=== PATIENT | male | born 1990 | race Caucasian/White ===

== ENCOUNTER 2021-02-15 10:04 | Inpatient (IN) | payer BC, SELFPAY ==
[~2021-02-15] VITALS: Ht 177.8 cm; Wt 90.9 kg
[~2021-02-15 10:04] MED LIST: PANTOPRAZOLE 40MG VIAL (C9113 PER 1) IV SCH
--- OUTSIDE RECORDS SUMMARY | 2021-02-15 10:16 | CCD ---
Author Author [facility] Organization [facility] Address Unknown Phone Unavailable Support Name Relationship Address Phone [facility] Next Of Kin [address] [place] [address] ELI FAY Next Of Kin [address] [facility] [address] [place] [phone] [place] [address] Unavailable Re-disclosure Warning The records that you are about to access may contain information from federally-assisted alcohol or drug abuse programs. If such information is present, then the following federally mandated warning applies: This information has been disclosed to you from records protected by federal confidentiality rules (42 CFR part 2). The federal rules prohibit you from making any further disclosure of this information unless further disclosure is expressly permitted by the written consent of the person to whom it pertains or as otherwise permitted by 42 CFR part 2. A general authorization for the release of medical or other information is NOT sufficient for this purpose. The Federal rules restrict any use of the information to criminally investigate or prosecute any alcohol or drug abuse patient.The records that you are about to access may contain highly sensitive health information, the redisclosure of which is protected by Article 27-F of the [facility] Public Health law. If you continue you may have access to information: Regarding HIV / AIDS; Provided by facilities licensed or operated by the [facility] Office of Mental Health; or Provided by the [facility] Office for People With Developmental Disabilities. If such information is present, then the following [facility] mandated warning applies: This information has been disclosed to you from confidential records which are protected by state law. State law prohibits you from making any further disclosure of this information without the specific written consent of the person to whom it pertains, or as otherwise permitted by law. Any unauthorized further disclosure in violation of state law may result in a fine or fci sentence or both. A general authorization for the release of medical or other information is NOT sufficient authorization for further disc losure. Immunizations Vaccine Date Status Description Data Source(s) COVID-19 VACCINE Moderna 08/30/2020 12:00:00 AM EDT completed [facility] Vaccine Series Complete: YESThis Data wa s Submitted to [facility] Via [employer]. COVID-19 VACCINE Moderna 08/02/2020 12:00:00 AM EDT completed [facility] Vaccine Series Complete: NOThis Data was Submitted to [facility] Via [employer]. Medications No Information Insurance Providers Payer name Policy type / Coverage type Policy ID Covered alliance party ID Covered alliance party's relationship to minaya Policy Minaya Plan Information [employer]/307 [id number] SP [id number] [place] [place]/307 [id number] SP [id number] ANSI-Not a Secondary Insurance [id number] ANSI-Not a Secondary Insurance [id number] Problems, Conditions, and Diagnoses No Information Surgeries/Procedures No Information Results No Information Social History No Information
[2021-02-15] MEDS ORDERED: NS 2,730 ML in IV 1 EA IV ONE ×4 (10:25)
[2021-02-15] MEDS ORDERED: cefTRIAXone SOD 2 GM in D5W MINI-BAG PLUS 50 ML IV ONE (10:25)
[2021-02-15] MEDS ORDERED: ONDANSETRON 4MG/2ML VIAL IV ONE (10:40)
[2021-02-15 10:49] LABS: BASO # 0.1 10^3/uL (0.0-0.2); BASO % 0.4 % (0.0-1.0); HEMATOCRIT 64.3 % (42.0-52.0); LYMPH # 1.6 10^3/uL (1.5-5.0); LYMPH % 4.5 % (24.0-44.0); MEAN CORPUSCULAR HEMOGLOBIN 29.7 pg (27.0-33.0); MEAN CORPUSCULAR HGB CONC 36.1 g/dl (32.0-36.5); MEAN CORPUSCULAR VOLUME 82.2 fl (80.0-96.0); MONO # 1.5 10^3/uL (0.0-0.8); MONO % 4.2 % (2.0-8.0); NEUTROPHILS # 30.5 10^3/uL (1.5-8.5); NEUTROPHILS % 88.5 % (36.0-66.0); PLATELET COUNT, AUTOMATED 320 10^3/uL (150-450); RED BLOOD COUNT 7.82 10^6/uL (4.30-6.10)
[2021-02-15 10:52] LABS: WHITE BLOOD COUNT 34.5 10^3/uL (4.0-10.0)
[2021-02-15 10:53] LABS: HEMOGLOBIN 23.2 g/dl (13.5-17.5)
[2021-02-15 11:00] LABS: INR 0.97; PARTIAL THROMBOPLASTIN TIME 29.5 SECONDS (25.9-37.0); PROTHROMBIN TIME 13.3 SECONDS (12.7-14.5)
[2021-02-15 11:26] LABS: ALT/SGPT 48 U/L (12-78); AMYLASE 137 U/L (25-115); BILIRUBIN,DIRECT 0.4 MG/DL (0.0-0.2); BILIRUBIN,TOTAL 1.5 MG/DL (0.2-1.0); BLOOD UREA NITROGEN 29 MG/DL (7-18); C REACTIVE PROTEIN QUANTITATIV 0.55 MG/DL (0.00-0.30); CALCIUM LEVEL 11.7 MG/DL (8.5-10.1); CARBON DIOXIDE LEVEL 20 MEQ/L (21-32); CHLORIDE LEVEL 92 MEQ/L (98-107); CK-MB VALUE MASS < 1.0 NG/ML (<3.6); CPK CREATINE PHOSPHOKINASE 92 U/L (39-308); CREATININE FOR GFR 3.66 MG/DL (0.70-1.30); GLOMERULAR FILTRATION RATE 21.2 (>60); GLUCOSE, FASTING 325 MG/DL (70-100); MB/CK RELATIVE INDEX 1.09 (< OR =4); POTASSIUM SERUM 5.2 MEQ/L (3.5-5.1); SODIUM LEVEL 131 MEQ/L (136-145); TOTAL PROTEIN 11.1 GM/DL (6.4-8.2); TROPONIN I < 0.02 NG/ML (< 0.10)
--- NOTE | 2021-02-15 11:58 | REP ---
INDICATION: SEPSIS/SHOCK COMPARISON: None. TECHNIQUE: Portable AP view of the chest FINDINGS: The mediastinum and cardiac silhouette are within normal limits for portable technique. The lung lerma are clear without acute consolidation, effusion, or pneumothorax. Skeletal structures are intact. IMPRESSION: No acute cardiopulmonary process appreciated. <Electronically signed by Fausto Dubon > 02/15/21 2107
--- NOTE | 2021-02-15 12:55 | REP ---
INDICATION: sepsis, unknown source. COMPARISON: None. TECHNIQUE: Standard helical technique without intravenous or oral bowel preparatory contrast administration FINDINGS: The liver, gallbladder, spleen, pancreas, adrenal glands, and kidneys are within normal limits. The abdominal aorta and para-aortic regions are within normal limits. The bowel loops and the mesenteries are within normal limits. There is no evidence of a mass or adenopathy. There is no free fluid or free air. Bone window technique throughout the examination shows the osseous structures to be within normal limits. IMPRESSION: CT findings are within normal limits. <Electronically signed by Jake Silver > 02/15/21 2085
--- NOTE | 2021-02-15 13:04 | REP ---
INDICATION: sepsis, unknown source. COMPARISON: Radiograph today. TECHNIQUE: CT chest performed without the use of intravenous contrast. Sagittal and coronal reconstruction images are performed. FINDINGS: Lungs: There are few calcified granulomas bilaterally. No infiltrate is seen. There is no pneumothorax. Mediastinum: No gross adenopathy. There is mild pneumomediastinum. There is mild pneumopericardium. Bree: No gross adenopathy. Axilla: No gross adenopathy. Pleura: No effusion. Heart: Not enlarged. Thoracic aorta: No aneurysm. Visualized osseous structures: Unremarkable. IMPRESSION: Critical Findings: Pneumomediastinum and pneumopericardium. The critical information above was relayed directly by me by telephone to LAMBERTO ROSE on 02/15/2021 at 1:00 pm with readback verification. <Electronically signed by Karri Santillan > 02/15/21 1154
[2021-02-15] MEDS ORDERED: HOME MED LIST COMPLETE! XX SCH (14:05)
[2021-02-15] MEDS ORDERED: NS 1,000 ML IV SCH (14:25)
[2021-02-15] MEDS ORDERED: ACETAMINOPHEN TAB 650MG DOSE (2X325MG) PO PRN (14:25)
--- OUTSIDE RECORDS SUMMARY | 2021-02-15 14:42 | CCD ---
Author Author [facility] Organization [facility] Address Unknown Phone Unavailable Support Name Relationship Address Phone LADI MCKEON Next Of Kin [phone] [place] [address] [facility] Next Of Kin [address] [place] [address] ELI FAY Next Of Kin [address] [facility] [address] [place] [address] ELI FAY E[place] [address] [address] Unavailable Re-disclosure Warning The records that you [...] is protected by Article 27-F of the [facility] Public Health law. If you continue you may have access to information: Regarding HIV / AIDS; Provided by facilities licensed or operated by the [facility] Office of Mental Health; or Provided by the [facility] Office for People With Developmental Disabilities. If such information is present, then the following [facility] mandated warning applies: This information has been [...] law may result in a fine or residential sentence or both. A general authorization for the release of medical or other information is NOT sufficient authorization for further disc losure. Immunizations Vaccine Date Status Description Data Source(s) COVID-19 VACCINE Moderna 08/30/2020 12:00:00 AM EDT completed [facility] Vaccine Series Complete: YESThis Data wa s Submitted to [facility] Via [employer]. COVID-19 VACCINE Moderna 08/02/2020 12:00:00 AM EDT completed [place] Vaccine Series Complete: NOThis Data was Submitted to [facility] Via [employer]. Medications No Information Insurance Providers Payer name Policy type / Coverage type Policy ID Covered alliance party ID Covered alliance party's relationship to minaya Policy Minaya Plan Information SELF PAY ONLY [id number] SP [id number] [employer] [place]/307 [id number] SP [id number] [place] [place]/307 [id number] SP [id number] ANSI-Not a Secondary Insurance [id number] ANSI-Not a Secondary Insurance [id number] Problems, Conditions, and Diagnoses No Information Surgeries/Procedures No Information Results No Information Social History No Information
[2021-02-15] MEDS ORDERED: GLUCOSE 4GM CHEW TABLET PO PRN (14:55)
[2021-02-15] MEDS ORDERED: NS 1,000 ML IV ONE (14:55)
[2021-02-15] MEDS ORDERED: DEXTROSE 50% 50 ML SYRINGE IV PRN (14:55)
[2021-02-15] MEDS ORDERED: VANCOMYCIN HCL 1,000 MG, VIAL MATE ADAPTER 1 EACH in NS 250 ML IV SCH (14:55)
[2021-02-15] MEDS ORDERED: GLUCAGON INJ 1MG VIAL SC PRN (14:55)
--- NOTE | 2021-02-15 14:55 | HPEPDOC ---
General Date of Admission Feb 15, 2021 at 14:23 Date of Service: Feb 15, 2021 Chief Complaint The patient is a 30-year-old male admitted with a reason for visit of Severe Sepsis. Source: Patient History of Present Illness Patient is 30 years old male without significant past medical history presented to hospital with multiple episodes of vomiting. Patient stated that for past month he has been having intermittent abdominal pain in the epigastric area. He denied fever, chills, nausea or vomiting for past month. Yesterday, patient developed multiple episodes of vomiting with chills and nausea. He denied any fever or diarrhea or frequency in urination. He reported that he stopped making urine for the past 8 to 10 hours and he feels that he does not have any appet ite. In ER patient was found to have tachycardia , leukocytosis of 34.5, hemoglobin 20.3 0.2, hematocrit 64.3, potassium 5.2, lactic acid 5.6, creatinine 3.6, GFR 21.2, glucose level 325, anion gap of 19. CT chest showed Pneumomediastinum and pneumopericardium. No pneumothorax. Dr. Nix was c ontacted by ER physician Dr. Cruz, he thinks patient does not need any surgical intervention for now. CT abdomen/pelvis unremarkable. Home Medications No Active Prescriptions or Reported Meds Allergies Coded Allergies: lactose (Verified Allergy, Unknown, 02/15/21) Past Medical History Medical History History of obesity, patient intentionally lost around 100 pounds for past few years Social History * Smoker: current smoker Alcohol: Denies Drugs: marijuana A-FIB/CHADSVASC A-FIB History Current/History of A-Fib/PAF?: No Current PO Anticoag Therapy: No Review of Systems Constitutional: Reports: Chills, Malaise; Denies: Fever Eyes: Denies: Pain ENT: Denies: Head Aches Pulmonary: Denies: Dyspnea Cardiovascular: Denies: Chest Pain, Palpitations Gastrointestinal: Reports: Nausea, Vomiting Genitourinary: Reports: Other Symptoms (Anuria for past 8 to 10 hours) Hematologic: Denies: Bruising Endocrine: Denies: Polydipsia Musculoskeletal: Denies: Neck Pain Neurological: Denies: Weakness Psych: Reports: Mood Normal Physical Examination General Exam: Positive: Alert, Cooperative Eye Exam: Positive: PERRLA ENT Exam: Positive: Atraumatic Neck Exam: Positive: Supple; Negative: JVD Chest Exam: Positive: Clear to auscultation Heart Exam: Positive: Tachycardic Telemetry: Positive: Sinus Abdomen Exam: Positive: Normal bowel sounds Extremity Exam: Negative: Clubbing Skin Exam: Positive: Rash; Negative: Breakdown Neuro Exam: Positive: Strength at 5/5 X4 ext, Cranial Nerves 3-12 NL Psych Exam: Positive: Oriented x 3 Vital Signs Vital Signs Date Time Temp Pulse Resp B/P (MAP) Pulse Ox O2 Delivery O2 Flow Rate FiO2 02/15/21 13:25 99.7 02/15/21 13:16 129 16 99 Room Air 02/15/21 13:15 131/95 (107) Laboratory Data Labs 24H Laboratory Tests 2 02/15/21 10:25: Immature Granulocyte % (Auto) 2.4, Neutrophils (%) (Auto) 88.5H, Lymphocytes (%) (Auto) 4.5L, Monocytes (%) (Auto) 4.2, Eosinophils (%) (Auto) 0.0, Basophils (%) (Auto) 0.4, Neutrophils # (Auto) 30.5H, Lymphocytes # (Auto) 1.6, Monocytes # (Auto) 1.5H, Eosinophils # (Auto) 0.0, Basophils # (Auto) 0.1, Nucleated Red Blood Cells % (auto) 0.0, Prothrombin Time 13.3, Prothromb Time International Ratio 0.97, Activated Partial Thromboplast Time 29.5, Anion Gap 19H, Glomerular Filtration Rate 21.2L, Lactic Acid Level 5.6*H, Calcium Level 11.7H, Total Bilirubin 1.5H, Direct Bilirubin 0.4H, Aspartate Amino Transf (AST/SGOT) 20, Alanine Aminotransferase (ALT/SGPT) 48, Alkaline Phosphatase 143H, Total Creatine Kinase 92, Creatine Kinase MB < 1.0, Creatine Kinase MB Relative Index 1.09, Troponin I < 0.02, C-Reactive Protein, Quantitative 0.55H, Total Protein 11.1H, Albumin 7.0H, Albumin/Globulin Ratio 1.7, Amylase Level 137H 02/15/21 10:35: Lipase 371 CBC/BMP Laboratory Tests 02/15/21 10:25 Microbiology Microbiology 02/15/21 Respiratory Virus Panel (PCR) (JIMENEZ) - Final, Complete 02/15/21 Blood Culture, Received Pending 02/15/21 Blood Culture, Received Pending Assessment/Plan Patient is 30 years old male without significant past medical history presented to hospital with multiple episodes of vomiting. Patient stated that for past month he has been having intermittent abdominal pain in the epigastric area. He denied fever, chills, nausea or vomiting for past month. Yesterday, patient developed multiple episodes of vomiting with chills and nausea. He denied any fever or diarrhea or frequency in urination. He reported that he stopped making urine for the past 8 to 10 hours and he feels that he does not have any appetite. In ER patient was found to have tachycardia , leukocytosis of 34.5, hemoglobin 20.3 0.2, hematocrit 64.3, potassium 5.2, lactic acid 5.6, creatinine 3.6, GFR 21.2, glucose level 325, anion gap of 19. CT chest showed Pneumomediastinum and pneumopericardium. No pneumothorax. Dr. Nix was contacted by ER physician Dr. Cruz, he thinks patient does not need any surgical intervention for now. CT abdomen/pelvis unremarkable. Problems (1) DKA (diabetic ketoacidosis) Status: Acute Problem Text: Patient developed severe dehydration with increased glucose level of 325 with anion gap of 19 We will check acetone/ketones in the serum, ketones in the urine N.p.o. for now Insulin drip We will check DK 65 BMP every 4 hours Glucose level every 1 hour We will check HbA1c (2) Severe sepsis Status: Acute Problem Text: Patient developed sepsis of unknown etiology superimposed with DKA. Patient has leukocytosis, lactic acidosis, severe dehydration, kidney failure, tachycardia. However this presentation can be attributed also to DKA. Empirically started vancomycin IV, Zosyn IV Aggressive IV fluid Await blood culture, urine culture (3) KEERTHI (acute kidney injury) Status: Acute Problem Text: Most likely secondary to severe sepsis and dehydration Patient developed anuria for past 8 to 10 hours Aggressive IV fluid Appreciate/agree with enrollment management vice president consult (4) Lactic acidosis Status: Acute Problem Text: Patient developed metabolic acidosis with anion gap of 19 and a lactic acidosis of 5 Secondary to DKA and possible severe sepsis Continue IV fluid Continue to monitor (5) Pneumomediastinum Status: Acute Problem Text: Patient developed mild pneumomediastinum and pneumopericardium Dr. Nix was contacted by ER, he thinks patient does not need any surgical intervention for now Plan / VTE VTE Prophylaxis Ordered?: Yes KEVIN AYERS DO Feb 15, 2021 14:55
[2021-02-15] MEDS ORDERED: VANCOMYCIN HCL 1,000 MG, VIAL MATE ADAPTER 1 EACH in NS 250 ML IV ONE (15:00)
[2021-02-15] MEDS ORDERED: INSULIN REGULAR IN 0.9 % NACL 100 UNIT in IV 1 EA IV SCH ×2 (15:00)
[2021-02-15 15:10] LABS: APPEARANCE, URINE TURBID (CLEAR); BACTERIA, URINE AUTO NEGATIVE (NEGATIVE); BILIRUBIN, URINE AUTO NEGATIVE (NEGATIVE); BLOOD, URINE BLOOD 1+ (NEGATIVE); COLOR, URINE AMBER (YELLOW); GLUCOSE, URINE (UA) AUTO 2+ mg/dL (NEGATIVE); KETONE, URINE AUTO TRACE mg/dL (NEGATIVE); LEUKOCYTE ESTERASE, URINE AUTO NEGATIVE (NEGATIVE); MUCUS, URINE LARGE (NEGATIVE); NITRITE, URINE AUTO NEGATIVE (NEGATIVE); PROTEIN, URINE AUTO 3+ mg/dL (NEGATIVE); RBC, URINE AUTO 1 /HPF (0-3); SPECIFIC GRAVITY URINE AUTO 1.025 (1.002-1.035); SQUAMOUS EPITHELIAL CELL UR AU 0 /HPF (0-6); UROBILINOGEN, URINE AUTO 0.2 mg/dL (0.0-2.0); WBC, URINE AUTO 19 /HPF (0-3)
[2021-02-15] MEDS ORDERED: SODIUM BICARBONATE 8.4% INJ 50 ML SYRINGE IV ONE (15:45)
[2021-02-15] MEDS ORDERED: VANCOMYCIN HCL 750 MG, VIAL MATE ADAPTER 1 EACH in NS 250 ML IV ONE (16:00)
[2021-02-15 17:03] LABS: BASO % 0.2 % (0.0-1.0); HEMATOCRIT 50.5 % (42.0-52.0); HEMOGLOBIN 18.1 g/dl (13.5-17.5); LYMPH # 1.7 10^3/uL (1.5-5.0); LYMPH % 7.2 % (24.0-44.0); MEAN CORPUSCULAR HEMOGLOBIN 29.4 pg (27.0-33.0); MEAN CORPUSCULAR HGB CONC 35.8 g/dl (32.0-36.5); MEAN CORPUSCULAR VOLUME 82.1 fl (80.0-96.0); MONO # 1.1 10^3/uL (0.0-0.8); MONO % 4.7 % (2.0-8.0); NEUTROPHILS # 20.2 10^3/uL (1.5-8.5); NEUTROPHILS % 86.8 % (36.0-66.0); PLATELET COUNT, AUTOMATED 218 10^3/uL (150-450); RED BLOOD COUNT 6.15 10^6/uL (4.30-6.10); WHITE BLOOD COUNT 23.2 10^3/uL (4.0-10.0)
[2021-02-15] MEDS ORDERED: KCL 20MEQ in NS 1000ML 1,000 ML IV SCH (17:10)
[2021-02-15] MEDS: INSULIN IV RATE CHANGE DOCUMENTATION ML/HR XX SCH ×2 (17:17→18:22)
[2021-02-15] MEDS: NS 1,000 ML IV SCH (17:22)
[2021-02-15] MEDS ORDERED: HumaLOG INSULIN (NovoLOG) PER UNIT SC SCH ×2 (17:30→21:00)
[2021-02-15 17:49] LABS: ACETONE/KETONE 1.27 MG/DL (<2.81); ALBUMIN 4.1 GM/DL (3.2-5.2); BILIRUBIN,TOTAL 0.7 MG/DL (0.2-1.0); CALCIUM LEVEL 8.7 MG/DL (8.5-10.1); CREATININE FOR GFR 2.06 MG/DL (0.70-1.30); GLOMERULAR FILTRATION RATE 41.1 (>60); POTASSIUM SERUM 4.5 MEQ/L (3.5-5.1); TOTAL PROTEIN 7.2 GM/DL (6.4-8.2)
[2021-02-15] MEDS: ONDANSETRON 4MG/2ML VIAL IV SCH ×2 (18:23→21:00)
[2021-02-15] MEDS: PIPERACILLIN/TAZOBACTAM SOD 4.5 GM in D5W MINI-BAG PLUS 50 ML IV SCH (18:45)
--- NOTE | 2021-02-15 19:04 | ECGEPIP ---
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
[2021-02-15 19:46] LABS: HEMOGLOBIN A1c 7.5 %
[2021-02-15] MEDS: HEPARIN SOD (PORCINE) 5000UNITS/ML 1ML VIAL/SYRINGE SC SCH (21:20)
[2021-02-15 22:04] LABS: BLOOD UREA NITROGEN 27 MG/DL (7-18); CALCIUM LEVEL 9.2 MG/DL (8.5-10.1); CARBON DIOXIDE LEVEL 26 MEQ/L (21-32); CHLORIDE LEVEL 108 MEQ/L (98-107); CREATININE FOR GFR 1.48 MG/DL (0.70-1.30); GLOMERULAR FILTRATION RATE > 60.0 (>60); GLUCOSE, FASTING 99 MG/DL (70-100); POTASSIUM SERUM 3.8 MEQ/L (3.5-5.1); SODIUM LEVEL 142 MEQ/L (136-145)
[2021-02-15] MEDS: HumaLOG INSULIN (NovoLOG) PER UNIT SC SCH (23:44)
[2021-02-16] MEDS: NS 1,000 ML IV SCH (00:32)
[2021-02-16] MEDS: ONDANSETRON 4MG/2ML VIAL IV SCH ×6 (01:01→21:28)
[2021-02-16 01:44] LABS: BLOOD UREA NITROGEN 26 MG/DL (7-18); CALCIUM LEVEL 8.6 MG/DL (8.5-10.1); CARBON DIOXIDE LEVEL 27 MEQ/L (21-32); CHLORIDE LEVEL 107 MEQ/L (98-107); CREATININE FOR GFR 1.22 MG/DL (0.70-1.30); GLOMERULAR FILTRATION RATE > 60.0 (>60); GLUCOSE, FASTING 124 MG/DL (70-100); PHOSPHORUS LEVEL 3.5 MG/DL (2.5-4.9); POTASSIUM SERUM 3.6 MEQ/L (3.5-5.1); SODIUM LEVEL 139 MEQ/L (136-145)
[2021-02-16] MEDS: PIPERACILLIN/TAZOBACTAM SOD 4.5 GM in D5W MINI-BAG PLUS 50 ML IV SCH ×3 (02:17→17:44)
[2021-02-16 06:10] LABS: HEMATOCRIT 48.1 % (42.0-52.0); HEMOGLOBIN 16.8 g/dl (13.5-17.5); MEAN CORPUSCULAR HEMOGLOBIN 29.4 pg (27.0-33.0); MEAN CORPUSCULAR HGB CONC 34.9 g/dl (32.0-36.5); MEAN CORPUSCULAR VOLUME 84.1 fl (80.0-96.0); PLATELET COUNT, AUTOMATED 211 10^3/uL (150-450); RED BLOOD COUNT 5.72 10^6/uL (4.30-6.10); WHITE BLOOD COUNT 19.8 10^3/uL (4.0-10.0)
[2021-02-16 06:49] LABS: ACETONE/KETONE 2.31 MG/DL (<2.81); ALBUMIN 4.1 GM/DL (3.2-5.2); ALT/SGPT 29 U/L (12-78); BILIRUBIN,TOTAL 1.1 MG/DL (0.2-1.0); BLOOD UREA NITROGEN 25 MG/DL (7-18); CALCIUM LEVEL 8.8 MG/DL (8.5-10.1); CARBON DIOXIDE LEVEL 30 MEQ/L (21-32); CHLORIDE LEVEL 107 MEQ/L (98-107); CREATININE FOR GFR 1.14 MG/DL (0.70-1.30); GLOMERULAR FILTRATION RATE > 60.0 (>60); GLUCOSE, FASTING 109 MG/DL (70-100); PHOSPHORUS LEVEL 2.6 MG/DL (2.5-4.9); POTASSIUM SERUM 4.2 MEQ/L (3.5-5.1); SODIUM LEVEL 142 MEQ/L (136-145); TOTAL PROTEIN 7.2 GM/DL (6.4-8.2)
[2021-02-16] MEDS ORDERED: LEVEMIR (INSULIN DETEMIR) 1 UNITS/0.01ML SC SCH ×2 (09:00→23:00)
[2021-02-16 09:37] LABS: BLOOD UREA NITROGEN 24 MG/DL (7-18); CALCIUM LEVEL 9.1 MG/DL (8.5-10.1); CARBON DIOXIDE LEVEL 28 MEQ/L (21-32); CHLORIDE LEVEL 107 MEQ/L (98-107); CREATININE FOR GFR 0.91 MG/DL (0.70-1.30); GLOMERULAR FILTRATION RATE > 60.0 (>60); GLUCOSE, FASTING 148 MG/DL (70-100); PHOSPHORUS LEVEL 2.2 MG/DL (2.5-4.9); POTASSIUM SERUM 3.9 MEQ/L (3.5-5.1); SODIUM LEVEL 140 MEQ/L (136-145)
[2021-02-16] MEDS: HumaLOG INSULIN (NovoLOG) PER UNIT SC SCH ×4 (10:46→20:17)
[2021-02-16] MEDS: HEPARIN SOD (PORCINE) 5000UNITS/ML 1ML VIAL/SYRINGE SC SCH ×2 (10:47→20:17)
[2021-02-16] MEDS ORDERED: VANCOMYCIN HCL 1,000 MG, VIAL MATE ADAPTER 1 EACH in NS 250 ML IV ONE ×2 (11:00→12:00)
[2021-02-16 14:00] VITALS: BP 161/84
[2021-02-16] MEDS ORDERED: VANCOMYCIN HCL 1,000 MG, VIAL MATE ADAPTER 1 EACH in NS 250 ML IV SCH (14:00)
--- NOTE | 2021-02-16 16:36 | IPNPDOC ---
Text Note Date of Service The patient was seen on 02/16/21. NOTE Subjective: Patient stated that he feels much better today. No fever or chills. Patient tolerated food well, no nausea or vomiting Objective: GENERAL APPEARANCE: NAD HEENT: no scleral icterus, no JVD, EOMI CARDIOVASCULAR: S1S2 LUNGS: Diminished lung sounds bilaterally ABDOMEN: soft & not tender w palpation MUSCULOSKELETAL: no cyanosis, no swelling INTEGUMENT: no generalized pallor NEUROLOGICAL: cranial nerve function from 2-12 intact, follows commands, speech not dysarthric Assessment/Plan Patient is 30 years old male without significant past medical history presented to hospital with multiple episodes of vomiting. Patient stated that for past month he has been having intermittent abdominal pain in the epigastric area. He denied fever, chills, nausea or vomiting for past month. Yesterday, patient developed multiple episodes of vomiting with chills and nausea. He denied any fever or diarrhea or frequency in urination. He reported that he stopped making urine for the past 8 to 10 hours and he feels that he does not have any appetite. In ER patient was found to have tachycardia , leukocytosis of 34.5, hemoglobin 20.3 0.2, hematocrit 64.3, potassium 5.2, lactic acid 5.6, creatinine 3.6, GFR 21.2, glucose level 325, anion gap of 19. CT chest showed Pneumomediastinum and pneumopericardium. No pneumothorax. Dr. Nix was contacted by ER physician Dr. Cruz, he thinks patient does not need any surgical intervention for now. CT abdomen/pelvis unremarkable. Problems (1) DKA (diabetic ketoacidosis)/new onset of diabetes Patient developed severe dehydration with increased glucose level of 325 with anion gap of 19 resolved Insulin drip was stopped, patient tolerated diet Insulin sliding scale Levemir 5 units daily DK 65 pending HbA1c 7.5 Patient will need diabetes education (2) Severe sepsis Patient developed sepsis of unknown etiology superimposed with DKA. Patient had leukocytosis, lactic acidosis, severe dehydration, kidney failure, tachycardia. However this presentation can be attributed also to DKA. Procalcitonin elevated 0.4 Discontinue vancomycin, patient MRSA negative, continue Zosyn IV blood culture negative, urine culture pending (3) KEERTHI (acute kidney injury) Resolved (4) Lactic acidosis Patient developed metabolic acidosis with anion gap of 19 and a lactic acidosis of 5 Secondary to DKA and possible severe sepsis Resolved (5) Pneumomediastinum Patient developed mild pneumomediastinum and pneumopericardium Dr. Nix was contacted by ER, he thinks patient does not need any surgical intervention for now Hypertension Patient has elevated blood pressure He will benefit from RAFFAELE inhibitor, started lisinopril 10 mg daily VS,Fishbone, I+O VS, Fishbone, I+O Laboratory Tests 02/15/21 16:48 02/15/21 21:21 02/16/21 01:02 02/16/21 05:57 02/16/21 08:52 Vital Signs Date Time Temp Pulse Resp B/P (MAP) Pulse Ox O2 Delivery O2 Flow Rate FiO2 02/16/21 14:00 98.7 91 18 161/84 (109) 100 Room Air I&O- Last 24 Hours up to 6 AM 02/16/21 06:00 Intake Total 6280 ml Output Total 490 ml Balance 5790 ml KEVIN AYERS DO Feb 16, 2021 16:36
--- NOTE | 2021-02-16 17:10 | CR ---
NEPHROLOGY CONSULTATION DATE: 02/16/2021 REQUESTING ZEKEYCIAN: Korey Poole M.D. REASON FOR CONSULTATION: Acute kidney injury with metabolic acidosis. HISTORY OF PRESENT ILLNESS: Dilshad Calixto is a 30-year-old male with no significant past medical history other than obesity. Patient reports that over the past couple of years he has changed his diet to lose more than 100 pounds. He was feeling well up until the past several weeks. He states he started having abdominal pain and nausea for the past several days. He was having more progressive nausea and recurrent episodes of vomiting. Reports he was unable to keep down any oral intake, not even ice chips. He was having worsening abdominal pain. Patient reports he was feeling increasingly weak and was also having shortness of breath. Yesterday, he could no longer pass urine and reports that after several hours with increasing weakness, abdominal pain and inability to produce urine, he presented to the emergency room. In the emergency room, patient was found to have leukocytosis of 34.5 and hemoconcentration with hemoglobin of 23. He was tachycardic on triage with pulse initial pulse of 152. He did not have any fever spikes. Laboratory studies also revealed hyperglycemia, with glucose of 325 and acute kidney injury with creatinine of 3.6. Patient had hypercalcemia, lactic acidosis, hyperkalemia and metabolic acidosis, with an anion gap and nephrology evaluation was subsequently requested. I adjusted the patient's fluid overnight. He received several liters of fluid in the emergency room and was subsequently on normal saline at 60 mL/hour. Primary team treated him with broad spectrum antibiotics and infectious workup was undertaken. After rigorous intravenous (IV) hydration, the patient did start producing urine and subsequent laboratory studies did show improvement in his electrolytes, acid base and renal function parameters. PAST MEDICAL HISTORY: 1. Obesity. 2. Recently diagnosed diabetes mellitus on this admission. PAST SURGICAL HISTORY: No past surgical history reported. SOCIAL HISTORY: Current smoker. No alcohol. Does report occasional marijuana. ALLERGIES: LACTOSE. HOME MEDICATIONS: No home medications. FAMILY HISTORY: No family history of renal failure. REVIEW OF SYSTEMS: CONSTITUTIONAL: He denies fevers. He reports generalized weakness and progressive fatigue. EYES: Denies visual changes or tearing. EARS, NOSE AND THROAT (ENT): Denies rhinorrhea, epistaxis or odynophagia. CARDIOVASCULAR: Denies chest pain. Denies leg swelling. He was tachycardic, but is no longer. RESPIRATORY: Reports resolved shortness of breath. Denies cough. GASTROINTESTINAL: Reports nausea, vomiting, poor oral intake. GENITOURIARY: Reports he is now passing urine after a period of anuria. HEMATOLOGICAL: Denies any history of anemia, bleeding or easy bruising. ENDOCRINE: Newly diagnosed with diabetes. Denies thyroid problems. MUSCULOSKELETAL: Denies acute myalgias or arthralgias. He reports generalized weakness. NEUROLGOCIAL: Denies seizures or syncope. PSYCHIATRIC: Denies anxiety or depression. The remainder of the review of systems is negative or as history of present illness (HPI). PHYSICAL EXAMINATION: VITAL SIGNS: Temperature 98.7, pulse 91, respiratory rate 18, blood pressure 161/84, saturating 100% on room air. INTAKE AND OUTPUT: Intake yesterday was 5.2 liters. Weight in the bed scale today is not recorded. GENERAL: Patient was seen lying in bed in the emergency room on the stretcher, young male, well built, in no acute distress. HEENT: Extraocular muscles are intact. Tongue is moist. NECK: Supple. Jugular veins are not elevated. HEART SOUNDS: Regular and there is no murmur. There is no edema. Peripheral pulses are palpable. LUNGS: Clear to auscultation. There is no crackle, rale or rhonchus. ABDOMEN: Soft and mildly tender to palpation in the epigastrium. MUSCULOSKELETAL: No clubbing, cyanosis or edema. SKIN: Warm, dry. Normal turgor. NEUROLOGIC: Oriented times three. No focal deficit. PSYCHIATRIC: Appropriate mood and affect. LABORATORY STUDIES: Sodium on admission was 131, current sodium is 140, potassium on admission was 5.2, current potassium is 3.9, bicarbonate on admission was 20, current bicarbonate is 28, anion gap on admission was 19, current anion gap is 5, creatinine on admission was 2.6, current creatinine is 1.1. A1C 7.5. Serum osmolality 303. Phosphorus 2.2, magnesium 2.0. AST/ALT/alkaline phosphatase all within normal limits. Albumin 4.1. Hemoglobin on admission was 23, current hemoglobin 16.8, platelets 211, white count on admission 34.5, current white count 19.8. Urinalysis shows protein, glucose. No significant red blood cells (RBCs). Blood cultures no growth after 24 hours times two sets. IMAGING DATA: CT of the abdomen and pelvis noncontrast done yesterday was negative and unremarkable. INPATIENT MEDICATIONS: He has received several boluses of normal saline. I had the patient on normal saline at 60 mL/hour overnight, which was stopped today. He is on IV Zosyn. He is status post insulin drip. He has received: - IV vancomycin - Tylenol as needed - heparin 5000 units subcutaneous every 12 hours - Zofran as needed - Protonix 40 mg IV daily. PROBLEMS: 1. Acute oligoanuric renal failure in the setting of dehydration, hypovolemia. possible sepsis and newly diagnosed diabetes. Patient was aggressively hydrated with normal saline. He has had improvement in his electrolyte abnormalities, acid base status and his renal parameters. His latest creatinine is 1.1. His renal imaging is unremarkable. He is tolerating oral intake now; hence, IV fluids have been stopped. 2. Status post hyperkalemia. It was secondary to kidney injury and high anion gap metabolic acidosis. It has resolved with IV fluid and correction of acid based disorder. 3. New onset diabetes mellitus. A1C is 7.5%. Patient is status post insulin drip. His sugars have improved. Most recent finger stick was 85 and insulin is managed as per primary service. It remains to be seen if he is type 1 or type 2 diabetic. 4. High anion gap metabolic acidosis. Anion gap was 19 on admission secondary to lactic acidosis and renal failure. His anion gap has closed with IV hydration and improvement in renal function and correction of his sugars. Thank you for involving me in the care of Mr. Calixto. Given improvement in renal function, electrolytes and resolution of his acidemia, nephrology is signing off. I do note that the patient has an abnormal urinalysis, with 3+ protein in the urine and a new diagnosis of diabetes. This was discussed with the patient. He should have repeat urine studies done as an outpatient and if proteinuria is persistent, he should be referred for outpatient nephrology evaluation.
[2021-02-16] MEDS ORDERED: VANCOMYCIN HCL 750 MG, VIAL MATE ADAPTER 1 EACH in NS 250 ML IV SCH ×2 (18:00→19:00)
[2021-02-16 20:01] VITALS: BP 153/87
[2021-02-16] MEDS: LEVEMIR (INSULIN DETEMIR) 1 UNITS/0.01ML SC SCH (21:29)
[2021-02-16] MEDS ORDERED: NS 500 ML IV ONE (23:20)
[2021-02-17] MEDS: PIPERACILLIN/TAZOBACTAM SOD 4.5 GM in D5W MINI-BAG PLUS 50 ML IV SCH ×3 (00:04→12:45)
[2021-02-17] MEDS: ONDANSETRON 4MG/2ML VIAL IV SCH ×5 (01:11→12:26)
[2021-02-17 06:00] VITALS: BP 137/78
[2021-02-17] MEDS: HumaLOG INSULIN (NovoLOG) PER UNIT SC SCH ×2 (08:50→12:34)
[2021-02-17 08:51] VITALS: BP 153/89
[2021-02-17] MEDS: LEVEMIR (INSULIN DETEMIR) 1 UNITS/0.01ML SC SCH (08:52)
[2021-02-17] MEDS: HEPARIN SOD (PORCINE) 5000UNITS/ML 1ML VIAL/SYRINGE SC SCH (08:53)
[2021-02-17 10:29] LABS: BASO % 0.2 % (0.0-1.0); EOS # 0.1 10^3/uL (0.0-0.5); EOS % 1.2 % (0.0-3.0); HEMOGLOBIN 17.3 g/dl (13.5-17.5); LYMPH # 2.7 10^3/uL (1.5-5.0); LYMPH % 23.7 % (24.0-44.0); MEAN CORPUSCULAR HEMOGLOBIN 29.6 pg (27.0-33.0); MEAN CORPUSCULAR HGB CONC 35.3 g/dl (32.0-36.5); MEAN CORPUSCULAR VOLUME 83.9 fl (80.0-96.0); MONO # 0.8 10^3/uL (0.0-0.8); MONO % 7.2 % (2.0-8.0); NEUTROPHILS # 7.8 10^3/uL (1.5-8.5); NEUTROPHILS % 67.2 % (36.0-66.0); PLATELET COUNT, AUTOMATED 200 10^3/uL (150-450); RED BLOOD COUNT 5.84 10^6/uL (4.30-6.10); WHITE BLOOD COUNT 11.6 10^3/uL (4.0-10.0)
[2021-02-17 11:05] LABS: ALBUMIN 4.1 GM/DL (3.2-5.2); ALT/SGPT 35 U/L (12-78); BILIRUBIN,TOTAL 1.4 MG/DL (0.2-1.0); BLOOD UREA NITROGEN 16 MG/DL (7-18); CALCIUM LEVEL 9.4 MG/DL (8.5-10.1); CARBON DIOXIDE LEVEL 26 MEQ/L (21-32); CHLORIDE LEVEL 107 MEQ/L (98-107); GLOMERULAR FILTRATION RATE > 60.0 (>60); GLUCOSE, FASTING 123 MG/DL (70-100); MAGNESIUM LEVEL 2.1 MG/DL (1.8-2.4); POTASSIUM SERUM 4.1 MEQ/L (3.5-5.1); SODIUM LEVEL 141 MEQ/L (136-145)
[2021-02-17] MEDS ORDERED: METF-838 PO (11:26)
[2021-02-17] MEDS ORDERED: ALCOPAD25 TOP (11:26)
[2021-02-17] MEDS ORDERED: BLOOKIT21 XX (11:26)
[2021-02-17] MEDS ORDERED: GLUC1TES2 XX (11:26)
[2021-02-17] MEDS ORDERED: LANTINJ4 SC (11:26)
[2021-02-17] MEDS ORDERED: LISI10TA22 PO (11:26)
[2021-02-17] MEDS ORDERED: PEN1MIS21 SC (11:26)
[2021-02-17] MEDS ORDERED: DOXY-350 PO (11:26)
[2021-02-17] MEDS ORDERED: LANC30MI XX (11:26)
[2021-02-17] MEDS ORDERED: INSUNSD SC (12:32)
--- NOTE | 2021-02-17 15:35 | IPN ---
PROGRESS NOTE DATE: 02/17/2021 Mr. Calixto is seen this morning on his bedside. He is feeling much better now and anticipating to go home today. He denies any nausea or vomiting, however, did have some loose stool. PHYSICAL EXAMINATION: Temperature 97.9 degrees Fahrenheit, heart rate 60 per minute, respiratory rate 18 per minute. Blood pressure 137/78 mmHg, and oxygen saturation 98% on room air. Head is atraumatic. Neck supple and without jugular venous distention (JVD) or thyroid enlargement. Heart sounds are regular and lungs clear to auscultation. Abdomen soft and nontender, and bowel sounds are normal. Extremities without any cyanosis or clubbing. Neurologically he is awake, alert, and oriented times three. Today's labs show sodium 141, potassium 4.1, BUN 16, creatinine 0.9, glucose 123, and calcium 9.4. His lactic acid level is down to 0.8. His hemoglobin A1c was 7.5%. WBC count is down to 11.6, hemoglobin 17.3, hematocrit 49. PROBLEMS: 1. Acute kidney injury, most likely related to dehydration, and kidney function has improved now. He is currently tolerating oral intake well. Patient is being encouraged to continue with oral fluids. Apparently he has been drinking energy drinks, and I have advised him to avoid any energy drinks. 2. Hypertension. Blood pressure seems well controlled, and he will need to continue with antihypertensive medications. He is current on lisinopril 10 mg daily, which he should continue in view of diabetes. 3. Vomiting and diarrhea. His vomiting has improved, and he does still have some loose stools. He is likely to improve without any further intervention. Patient is being encouraged to stay hydrated. 4. New-onset diabetes. I have discussed with patient at length about his new-onset diabetes situation. He is likely to avoid medications at present if he follows his dietary restrictions. He should followup with his primary physician as an outpatient. DISPOSITION: From a renal standpoint, patient can be discharged to home and followup with his primary care physician as an outpatient.
--- NOTE | 2021-02-17 16:14 | DS.PDOC ---
Discharge Summary General Date of Admission Feb 15, 2021 at 14:23 Date of Discharge 02/17/21 Discharge Summary PROCEDURES PERFORMED DURING STAY: [None]. ADMITTING DIAGNOSES: DKA (diabetic ketoacidosis)/new onset of diabetes Severe sepsis KEERTHI (acute kidney injury) Lactic acidosis Pneumomediastinum pneumopericardium Hypertension DISCHARGE DIAGNOSES: DKA (diabetic ketoacidosis)/new onset of diabetes Severe sepsis KEERTHI (acute kidney injury) Lactic acidosis Pneumomediastinum pneumopericardium Hypertension COMPLICATIONS/CHIEF COMPLAINT: Severe Sepsis. HISTORY OF PRESENT ILLNESS:Patient is 30 years old male without significant past medical history presented to hospital with multiple episodes of vomiting. Patient stated that for past month he has been having intermittent abdominal pain in the epigastric area. He denied fever, chills, nausea or vomiting for past month. Yesterday, patient developed multiple episodes of vomiting with chills and nausea. He denied any fever or diarrhea or frequency in urination. He reported that he stopped making urine for the past 8 to 10 hours and he feels that he does not have any appetite. In ER patient was found to have tachycardia , leukocytosis of 34.5, hemoglobin 20.3 0.2, hematocrit 64.3, potassium 5.2, lactic acid 5.6, creatinine 3.6, GFR 21.2, glucose level 325, anion gap of 19. CT chest showed Pneumomediastinum and pneumopericardium. No pneumothorax. Dr. Nix was contacted by ER physician Dr. Cruz, he thinks patient does not need any surgical intervention for now. CT abdomen/pelvis unremarkable. HOSPITAL COURSE: During the hospital stay the following issue addressed (1) DKA (diabetic ketoacidosis)/new onset of diabetes Patient developed severe dehydration with increased glucose level of 325 with anion gap of 19 Patient received treatment with Insulin drip with positive effect. Blood glucose level was stabilized DK 65 pending HbA1c 7.5 I prescribed Lantus for the outpatient settings however patient told me that he cannot afford it. I changed it to NPH twice daily (2) Severe sepsis Patient developed sepsis of unknown etiology superimposed with DKA. Patient had leukocytosis, lactic acidosis, severe dehydration, kidney failure, t achycardia. However this presentation can be attributed also to DKA. Procalcitonin elevated 0.4 patient MRSA negative, patient received a course of vancomycin IV, Zosyn IV empirically blood culture negative, urine culture negative (3) KEERTHI (acute kidney injury) Patient developed KEERTHI, he received IV hydration, KEERTHI resolved (4) Lactic acidosis Patient developed metabolic acidosis with anion gap of 19 and a lactic acidosis of 5 Secondary to DKA and possible severe sepsis Resolved (5) Pneumomediastinum Patient developed mild pneumomediastinum and pneumopericardium Dr. Nix was contacted by ER, he thinks patient does not need any surgical intervention Hypertension Patient has elevated blood pressure He will benefit from RAFFAELE inhibitor, started lisinopril 10 mg daily DISCHARGE MEDICATIONS: Please see below. ALLERGIES: Please see below. PHYSICAL EXAMINATION ON DISCHARGE: VITAL SIGNS: Please see below. GENERAL APPEARANCE: NAD HEENT: no scleral icterus, no JVD, EOMI CARDIOVASCULAR: S1S2 LUNGS: Diminished lung sounds bilaterally ABDOMEN: soft & not tender w palpation MUSCULOSKELETAL: no cyanosis, no swelling INTEGUMENT: no generalized pallor NEUROLOGICAL: cranial nerve function from 2-12 intact, follows commands, speech not dysarthric LABORATORY DATA: Please see below. PROGNOSIS: Fair ACTIVITY: [As tolerated]. DIET: Diabetes diet DISCHARGE PLAN: Home DISPOSITION: 01 Home, Self-Care. DISCHARGE INSTRUCTIONS: Check glucose level before each meal and put in log ITEMS TO FOLLOWUP ON ON OUTPATIENT: Follow-up with PCP and endocrinology DISCHARGE CONDITION: [Stable]. TIME SPENT ON DISCHARGE: 50minutes. Vital Signs/I&Os Vital Signs Date Time Temp Pulse Resp B/P (MAP) Pulse Ox O2 Delivery O2 Flow Rate FiO2 02/17/21 08:51 153/89 02/17/21 06:00 97.9 60 18 98 Room Air I&O- Last 24 Hours up to 6 AM 02/17/21 06:00 Intake Total 5050 ml Output Total 600 ml Balance 4450 ml Laboratory Data Labs 24H Laboratory Tests 2 02/16/21 17:00: Bedside Glucose (Misc Panel) 104 02/16/21 19:03: Lactic Acid Level 2.7*H 02/16/21 20:13: Bedside Glucose (Misc Panel) 190H 02/17/21 03:24: Lactic Acid Level 0.8 02/17/21 08:32: Bedside Glucose (Misc Panel) 105 02/17/21 10:20: Immature Granulocyte % (Auto) 0.5, Neutrophils (%) (Auto) 67.2H, Lymphocytes (%) (Auto) 23.7L, Monocytes (%) (Auto) 7.2, Eosinophils (%) (Auto) 1.2, Basophils (%) (Auto) 0.2, Neutrophils # (Auto) 7.8, Lymphocytes # (Auto) 2.7, Monocytes # (Auto) 0.8, Eosinophils # (Auto) 0.1, Basophils # (Auto) 0.0, Nucleated Red Blood Cells % (auto) 0.0, Anion Gap 8, Glomerular Filtration Rate > 60.0, Calcium Level 9.4, Magnesium Level 2.1, Total Bilirubin 1.4H, Aspartate Amino Transf (AST/SGOT) 31, Alanine Aminotransferase (ALT/SGPT) 35, Alkaline Phosphatase 77, Total Protein 7.0, Albumin 4.1, Albumin/Globulin Ratio 1.4 02/17/21 11:20: Bedside Glucose (Misc Panel) 160H CBC/BMP Laboratory Tests 02/17/21 10:20 FSBS Laboratory Tests Test 02/16/21 17:00 02/16/21 20:13 02/17/21 08:32 02/17/21 11:20 Range/Units Bedside Glucose (Misc Panel) 104 190 105 160 70-105 MG/DL Microbiology Microbiology 02/15/21 Urine Culture - Final, Complete 02/15/21 Respiratory Virus Panel (PCR) (JIMENEZ) - Final, Complete 02/15/21 Blood Culture - Preliminary, Resulted No Growth after 48 hours. All Specime... 02/15/21 Blood Culture - Preliminary, Resulted No Growth after 48 hours. All Specime... Discharge Medications Scheduled Blood Sugar Diagnostic (Advanced Glucose Test Strips) 1 Each Strip, 1 STRIP XX ASDIRECTED Doxycycline Monohydrate (Doxycycline) 100 Mg Capsule, 1 CAP PO BID Insulin Human NPH (Humulin N) 100 Unit/1 Ml Vial, 3 UNITS SC BID Lisinopril (Lisinopril) 10 Mg Tablet, 10 MG PO DAILY Metformin HCl (Metformin HCl ER) 500 Mg Tab.er.24h, 500 MG PO BID Allergies Coded Allergies: lactose (Verified Allergy, Unknown, 02/15/21) KEVIN AYERS DO Feb 17, 2021 16:14
== END 2021-02-17 14:57 | disposition home or self-care (01) | DRG 720 ==
LOC: M ED 10:04 → M ED INP 14:23 → ENRESERV 02-16 13:01 → M MSPAV 02-16 14:00
PROVIDERS: ADMIT Internal Medicine; ATTEND Internal Medicine
DX: A41.9 Sepsis, unspecified organism (principal); E11.10 Type 2 diabetes mellitus with ketoacidosis without coma; N17.9 Acute kidney failure, unspecified; E87.2 Acidosis; J98.2 Interstitial emphysema; I31.9 Disease of pericardium, unspecified; E83.52 Hypercalcemia; E87.5 Hyperkalemia; E11.65 Type 2 diabetes mellitus with hyperglycemia; R65.20 Severe sepsis without septic shock; E86.0 Dehydration; F17.200 Nicotine dependence, unspecified, uncomplicated; E73.9 Lactose intolerance, unspecified; I10 Essential (primary) hypertension